=== PATIENT | female | born 1965 | race Hispanic/Latino ===

== ENCOUNTER 2024-06-20 21:13 | Emergency (ER) | payer OTHER ==
[2024-06-20] MEDS ORDERED: KETOROLAC 30 MG/ML INJ ONE (22:09)
[2024-06-20 22:10] LABS: Specific Gravity 1.005 (1.005-1.030); Sqamous Epithelial <5 /HPF (None Seen); Urine Bacteria <20 /HPF (<20); Urine Bilirubin NEGATIVE (Negative); Urine Blood Trace (Negative); Urine Clarity Clear (Clear); Urine Color Colorless (Yellow); Urine Culture Reflex Order NOT NEEDED; Urine Glucose NEGATIVE (Negative); Urine Ketones NEGATIVE (Negative); Urine Micro Reflex YN NO BILL MICROSCOPIC; Urine Nitrite NEGATIVE (Negative); Urine Protein NEGATIVE (Negative); Urine RBC <5 /HPF (None Seen); Urine Urobilinogen Normal (Normal); Urine WBC <5 /HPF (<5)
[2024-06-20] MEDS ORDERED: NA CHLORIDE 0.9% 1,000 ML ONE (22:10)
[2024-06-20] MEDS ORDERED: Magnesium Sulfate 2gm IVPB 2 G/50 ML BAG IV ONE (22:10)
[2024-06-20 22:31] LABS: Absolute Eosinophils 0.2 K/uL (0-0.5); Absolute Lymphocytes (CBC) 1.3 K/uL (0.7-4.9); Basophils % 0.3 % (0-1.3); Eosinophils % 2.6 % (0-4.4); Hematocrit 38.6 % (36.0-45.0); Hemoglobin 13.1 g/dL (12.0-15.0); Lymphocytes % 17.6 % (15.3-44.8); MCH 30.2 pg (27.0-35.0); MCV 88.9 fL (80-100); MPV 7.8 fL (7.6-11.3); Monocytes % 12.6 % (3.3-12.3); Neutrophils % 66.9 % (41.7-73.7); Platelets 222 thou/uL (152-406); RBC Red Blood Cell Count 4.34 M/uL (3.86-4.86); Red Cell Distribution Width 13.2 % (12.1-15.2)
[2024-06-20 22:40] LABS: Albumin 3.9 g/dL (3.4-5.0); Albumin/Globulin Ratio 1.2 (1.1-1.8); Anion Gap 12.5 mEq/L (5.0-15.0); Bilirubin Total 0.4 mg/dL (0.2-1.0); Globulin 3.3 g/dL (2.3-3.5); Potassium 3.5 mEq/L (3.5-5.1); Protein, Total 7.2 g/dL (6.4-8.2)
--- NOTE | 2024-06-20 23:42 | ER ---
Nurse's Notes [facility] Name: Rossi Aguila Age: 59 yrs Sex: Female : 1965 Arrival Date: 06/20/2024 Time: 21:13 Bed 15 Private MD: Diagnosis: Sinus headache Presentation: 06/20 21:33 Chief complaint: Patient states: Headache, congestion that began yesterday. Denies ss fever. Coronavirus screen: Client denies travel out of the [place] in the last 14 days. Ebola Screen: Patient denies exposure to infectious person. Patient denies travel to an Ebola-affected area in the 21 days before illness onset. Initial Sepsis Screen: Does the patient meet any 2 criteria? No. Patient's initial sepsis screen is negative. Does the patient have a suspected source of infection? No. Patient's initial sepsis screen is negative. Risk Assessment: Do you want to hurt yourself or someone else? Patient reports no desire to harm self or others. Onset of symptoms was June 19, 2024. 21:33 Method Of Arrival: Ambulatory ss 21:33 Acuity: VIRGIL 3 ss Historical: - Allergies: 21:35 Benadryl; ss 21:35 PENICILLINS; ss - PMHx: 21:35 prediabetic; ss - PSHx: 21:35 Appendectomy; tubal ligation; ss - Infectious Disease History:: Denies. - Social history:: Smoking status: Patient denies any tobacco usage or history of. - Family history:: not pertinent. Screenin:38 [facility] ED Fall Risk Assessment (Adult) History of falling in the last 3 months, al5 including since admission No falls in past 3 months (0 pts) Confusion or Disorientation No (0 pts) Intoxicated or Sedated No (0 pts) Impaired Gait No (0 pts) Mobility Assist Device Used No (0 pt) Altered Elimination No (0 pt) Score/Fall Risk Level 0 - 2 = Low Risk Oriented to surroundings, Maintained a safe environment, Hourly rounding (assess needs \T\ fall precautionary measures) done. Abuse screen: Denies threats or abuse. Denies injuries from another. Nutritional screening: No deficits noted. Tuberculosis screening: No symptoms or risk factors identified. Assessment: 21:39 General: Appears in no apparent distress. ill, Behavior is calm, cooperative. Pain: al5 Complains of pain in head Pain currently is 10 out of 10 on a pain scale. Neuro: Level of Consciousness is awake, alert, obeys commands, Oriented to person, place, time, situation. Cardiovascular: Patient's skin is warm and dry. Respiratory: Airway is patent Respiratory effort is even, unlabored, Respiratory pattern is regular, symmetrical. GI: No signs and/or symptoms were reported involving the gastrointestinal system. : No signs and/or symptoms were reported regarding the genitourinary system. EENT: No signs and/or symptoms were reported regarding the EENT system. Derm: Skin is intact, Skin is pink, warm \T\ dry. normal. Musculoskeletal: No signs and/or symptoms reported regarding the musculoskeletal system. 22:50 Reassessment: Patient appears in no apparent distress at this time. No changes from al5 previously documented assessment. Patient and/or family updated on plan of care and expected duration. Pain level reassessed. Patient is alert, oriented x 3, equal unlabored respirations, skin warm/dry/pink. Vital Signs: 21:33 Weight 71.67 kg; Height 5 ft. 2 in. ; Pain 10/10; ss 21:38 BP 132 / 71; Pulse 98; Resp 18; Temp 99.8; Pulse Ox 96% on R/A; al5 21:45 BP 124 / 79; Pulse 97; Resp 18; Pulse Ox 95% on R/A; al5 22:00 BP 128 / 75; Pulse 97; Resp 18; Pulse Ox 96% on R/A; al5 22:25 BP 129 / 77; Pulse 88; Resp 18; Pulse Ox 97% on R/A; al5 22:30 BP 117 / 69; Pulse 84; Resp 18; Pulse Ox 94% on R/A; al5 23:45 BP 122 / 74; Pulse 80; Resp 18; Pulse Ox 96% on R/A; pc2 21:33 Body Mass Index 28.90 (71.67 kg, 157.48 cm) ss 21:33 Pain Scale: Adult ss ED Course: 21:15 Patient arrived in ED. [id number] 21:22 Dante Little MD is Attending Physician. rt 21:34 Kassandra Wang RN is Primary Nurse. al5 21:35 Triage completed. ss 21:35 Arm band placed on left wrist. ss 21:39 Patient has correct armband on for positive identification. Placed in gown. Bed in low al5 position. Call light in reach. Side rails up X 1. Provided Education on: processes and procedures. 21:39 No provider procedures requiring assistance completed. al5 21:47 [facility]AM Sent. al5 22:02 UAM Sent. al5 22:27 CT Head Brain wo Cont In Process Unspecified. EDMS 06/21 00:01 IV discontinued, intact, bleeding controlled, No redness/swelling at site. Pressure pc2 dressing applied. Administered Medications: 06/20 22:18 Drug: Ketorolac IVP 15 mg IVP once Route: IVP; Site: right antecubital; al5 23:07 Follow up: Response: No adverse reaction; Marked relief of symptoms al5 22:18 Drug: Droperidol IVP 1.25 mg IVP once Route: IVP; Site: right antecubital; al5 23:07 Follow up: Response: No adverse reaction; Marked relief of symptoms al5 22:18 Drug: NS 0.9% IV 1000 ml IV at 1 bolus Per protocol; 1000 mL bolus Route: IV; Rate: 1 al5 bolus; Site: right antecubital; 23:30 Follow up: Response: No adverse reaction; IV Status: Completed infusion; IV Intake: pc2 1000ml 22:18 Drug: Magnesium Sulfate IVPB 2 grams IVPB once over 2 hrs Route: IVPB; Infused Over: 2 al5 hrs; Site: right antecubital; 23:55 Follow up: Response: No adverse reaction; IV Status: Completed infusion pc2 Medication: 21:39 VIS not applicable for this client. al5 Intake: 23:30 IV: 1000ml; Total: 1000ml. pc2 Outcome: 23:42 Discharge ordered by . rt 06/21 00:01 Discharged to home ambulatory, pc2 Condition: stable Discharge instructions given to patient, Instructed on discharge instructions, follow up and referral plans. medication usage, Demonstrated understanding of instructions, follow-up care, medications, Prescriptions given X 1, 00:01 Patient left the ED. pc2 Signatures: Dispatcher [employer] EDMS Maryann Vasques RN RN Alba [id number] Dante Little MD MD rt Kassandra Wang RN RN al5 Hidalgo, Radha, RN RN pc2
--- NOTE | 2024-06-20 23:42 | EDPHYS ---
Physician Documentation [facility] Name: Rossi Aguila Age: 59 yrs Sex: Female : 1965 Arrival Date: 06/20/2024 Time: 21:13 Bed 15 Private MD: ED Physician Dante Little HPI: 06/20 21:44 This 59 yrs old Female presents to ER via Ambulatory with complaints of rt Headache, Worst Ever, Vision Problem. 21:44 Patient presents to the ED with frontal headache, intermittent since yesterday. Patient rt states that she believes it is her allergies. Patient states that when the pain occurs, she has blurred vision, this does resolve when the pain goes away. Denies aggravating or alleviating factors. Reports mild burning with urination, presents for complaints, symptoms are moderate in severity, no other aggravating or alleviating factors.. Historical: - Allergies: 21:35 Benadryl; ss 21:35 PENICILLINS; ss - PMHx: 21:35 prediabetic; ss - PSHx: 21:35 Appendectomy; tubal ligation; ss - Infectious Disease History:: Denies. - Social history:: Smoking status: Patient denies any tobacco usage or history of. - Family history:: not pertinent. ROS: 21:44 Constitutional: Negative for fever, chills, and weight loss, Cardiovascular: Negative rt for chest pain, palpitations, and edema, Respiratory: Negative for shortness of breath, cough, wheezing, and pleuritic chest pain, Abdomen/GI: Negative for abdominal pain, nausea, vomiting, diarrhea, and constipation, MS/Extremity: Negative for injury and deformity, Skin: Negative for injury, rash, and discoloration, :44 ENT: Positive for sinus congestion, sinus pain, :44 Neuro: Positive for headache, Negative for loss of consciousness, Exam: 21:44 Constitutional: This is a well developed, well nourished patient who is awake, alert, rt and in no acute distress. Chest/axilla: Normal chest wall appearance and motion. Nontender with no deformity. No lesions are appreciated. Cardiovascular: Regular rate and rhythm with a normal S1 and S2. No gallops, murmurs, or rubs. Normal PMI, no JVD. No pulse deficits. Respiratory: Lungs have equal breath sounds bilaterally, clear to auscultation and percussion. No rales, rhonchi or wheezes noted. No increased work of breathing, no retractions or nasal flaring. Abdomen/GI: Soft, non-tender, with normal bowel sounds. No distension or tympany. No guarding or rebound. No evidence of tenderness throughout. Skin: Warm, dry with normal turgor. Normal color with no rashes, no lesions, and no evidence of cellulitis. MS/ Extremity: Pulses equal, no cyanosis. Neurovascular intact. Full, normal range of motion. 21:44 Head/face: Tenderness to palpation over right frontal sinus, no other areas of tenderness, normocephalic. 21:44 Eyes: Conjunctiva normal, pupils equal round reactive to light, extraocular muscles are intact, no visual field deficits. 21:44 Neck: Supple, full range of motion, no meningismus, 21:44 Neuro: Awake, alert, oriented, speech normal, cranial nerves II through XII intact, strength and sensation intact in upper lower extremities, no ataxia on [id number], Vital Signs: 21:33 Weight 71.67 kg; Height 5 ft. 2 in. ; Pain 10/10; ss 21:38 BP 132 / 71; Pulse 98; Resp 18; Temp 99.8; Pulse Ox 96% on R/A; al5 21:45 BP 124 / 79; Pulse 97; Resp 18; Pulse Ox 95% on R/A; al5 22:00 BP 128 / 75; Pulse 97; Resp 18; Pulse Ox 96% on R/A; al5 22:25 BP 129 / 77; Pulse 88; Resp 18; Pulse Ox 97% on R/A; al5 22:30 BP 117 / 69; Pulse 84; Resp 18; Pulse Ox 94% on R/A; al5 23:45 BP 122 / 74; Pulse 80; Resp 18; Pulse Ox 96% on R/A; pc2 21:33 Body Mass Index 28.90 (71.67 kg, 157.48 cm) ss 21:33 Pain Scale: Adult ss MDM: 21:23 Patient medically screened. rt 23:44 Differential diagnosis: Sinus headache, intracranial hemorrhage, migraine headache. rt Data reviewed: vital signs, nurses notes, lab test result(s), radiologic studies. I considered the following discharge prescriptions or medication management in the emergency department Medications were administered in the Emergency Department. See MAR. Independent interpretation of the following test(s) in the Emergency Department CT Scan: My interpretation is No intracranial hemorrhage seen on my interpretation of CT scan images. Test considered but Not performed: Labs: Signs and symptoms not consistent with subarachnoid hemorrhage, meningitis, encephalitis, lumbar puncture is not indicated. Care significantly affected by the following chronic conditions: Diabetes. Counseling: I had a detailed discussion with the patient and/or guardian regarding the historical points, exam findings, and any diagnostic results supporting the discharge/admit diagnosis, lab results, radiology results, the need for outpatient follow up, to return to the emergency department if symptoms worsen or persist or if there are any questions or concerns that arise at home. Response to treatment: the patient's symptoms have resolved after treatment, the patient's pain is gone. 06/20 21:35 Order name: CBC with Diff; Complete Time: 22:44 rt 06/20 21:35 Order name: CMP; Complete Time: 22:44 rt 06/20 21:35 Order name: UAM; Complete Time: 22:44 rt 06/20 21:35 Order name: CT Head Brain wo Cont rt Administered Medications: 22:18 Drug: Ketorolac IVP 15 mg IVP once Route: IVP; Site: right antecubital; al5 23:07 Follow up: Response: No adverse reaction; Marked relief of symptoms al5 22:18 Drug: Droperidol IVP 1.25 mg IVP once Route: IVP; Site: right antecubital; al5 23:07 Follow up: Response: No adverse reaction; Marked relief of symptoms al5 22:18 Drug: NS 0.9% IV 1000 ml IV at 1 bolus Per protocol; 1000 mL bolus Route: IV; Rate: 1 al5 bolus; Site: right antecubital; 23:30 Follow up: Response: No adverse reaction; IV Status: Completed infusion; IV Intake: pc2 1000ml 22:18 Drug: Magnesium Sulfate IVPB 2 grams IVPB once over 2 hrs Route: IVPB; Infused Over: 2 al5 hrs; Site: right antecubital; 23:55 Follow up: Response: No adverse reaction; IV Status: Completed infusion pc2 Disposition Summary: 06/20/24 23:42 Discharge Ordered Notes: Location: Home rt Problem: new rt Symptoms: have improved rt Condition: Stable rt Diagnosis - Sinus headache rt Followup: rt - With: Private Physician - When: 2 - 3 days - Reason: Discharge Instructions: - Discharge Summary Sheet rt - Sinus Headache rt Forms: - Medication Reconciliation Form rt - Antibiotic Education rt - Prescription Opioid Use rt - Patient Portal Instructions rt - Leadership Thank You Letter rt Prescriptions: - azithromycin 500 mg Oral tablet - take 1 dose pack ORAL route as directed on dose pack For 250 mg dose pack: take rt 500 mg today (day 1), then 250 mg for 4 days (days 2-5); 6 tablet; Refills: 0, Product Selection Permitted Signatures: Dispatcher [employer] EDMS Maryann Vasques, RN RN ss Dante Little MD MD rt Kassandra Wang RN RN al5 Radha Hidalgo RN pc2 Corrections: (The following items were deleted from the chart) 21:35 21:35 CBC+H.LAB.BRZ ordered. EDMS EDMS 21:36 21:35 COMPREHENSIVE METABOLIC PANEL+C.LAB.BRZ ordered. EDMS EDMS 21:36 21:35 Urinalysis W/Microscopic+U.LAB.BRZ ordered. EDMS EDMS
[2024-06-21 00:11] VITALS: TEMP 99.8
[2024-06-21 00:19] VITALS: BP 122/74; O2SAT 96
--- NOTE | 2024-06-21 21:10 | RAD REPORT ---
EXAM DESCRIPTION: CT Head Without Intravenous Contrast CLINICAL HISTORY: Headache. TECHNIQUE: Axial computed tomography images of the head/brain without intravenous contrast. Sagitt al and coronal reformatted images were created and reviewed. This CT exam was performed using one o r more of the following dose reduction techniques: automated exposure control, adjustment of the mA and/or kV according to patient size, and/or use of iterative reconstruction technique. COMPARISON: CT Head dated 12/24/2018 FINDINGS: Brain: Unremarkable. No hemorrhage. No significant white matter disease. No edema. Ventricles: Unremarkable. No ventriculomegaly. Bones/joints: Unremarkable. No acute fracture. Soft tissues: Unremarkable. Sinuses: Mild bilateral maxillary, ethmoid and left sphenoid sinus sinus mucosal thickening. Mastoid air cells: Unremarkable as visualized. No mastoid effusion. IMPRESSION: No acute intracranial or extra-axial abnormality. Electronically signed by: Oksana Murphy MD 06/20/2024 11:28 PM CDT RP Due to temporary technical issues with the PACS/Fluency reporting system, reports are being signed by the in house radiologists without review as a courtesy to insure prompt reporting. The interpreting radiologist is fully responsible for the content of the report.
== END 2024-06-21 00:01 | disposition home or self-care (01) ==
LOC: ER 21:13
DX: G44.89 Other headache syndrome (principal); R73.03 Prediabetes
CPT/HCPCS: 96365; 85025; 81001; 36415; 80053; 70450; 96375; 99284; 96366; J3475; J7030